=== PATIENT | male | born 1960 | race Caucasian/White ===

== ENCOUNTER 2018-06-17 10:30 | Outpatient (CLI) | payer BC ==
--- NOTE | 2018-06-17 17:25 | Diagnostic Imaging Report ---
Indication: Pain x3 weeks Technique: 3 views of the left ankle Comparison: none Findings: There is minimal soft tissue swelling overlying the lateral malleolus. No acute fractures. No dislocations. The joint spaces are preserved. There are some vascular calcifications Impression: Minimal lateral soft tissue swelling. No acute bony trauma
== END 2018-06-17 12:30 | disposition home or self-care (01) ==
LOC: RAD 10:30
DX: S93.432A Sprain of tibiofibular ligament of left ankle, initial encounter (principal)